=== PATIENT | female | born 1960 | race Caucasian/White ===

== ENCOUNTER 2019-12-16 09:11 | Emergency (ER) | payer MEDICAID ==
[~2019-12-16] VITALS: Ht 157.5 cm; Wt 49.0 kg
[2019-12-16 09:40] VITALS: BP 110/63
[2019-12-16] MEDS ORDERED: ketorolac trometh inj. 60 MG/2 ML VIAL IM ONE (10:45)
[2019-12-16] MEDS ORDERED: HYDROcodone/acetaminophen 10/325mg tab PO ONE (10:45)
[2019-12-16] MEDS ORDERED: HYDR-4353 PO (10:50)
[2019-12-16] MEDS ORDERED: IBUP-1986 PO (10:50)
== END 2019-12-16 11:15 | disposition home or self-care (01) ==
LOC: ER 09:11
DX: M25.461 Effusion, right knee (principal); F17.200 Nicotine dependence, unspecified, uncomplicated; Z79.899 Other long term (current) drug therapy; W01.0XXA Fall on same level from slipping, tripping and stumbling without subsequent striking against object, initial encounter; Y93.89 Activity, other specified; Y92.89 Other specified places as the place of occurrence of the external cause; Y99.8 Other external cause status
CPT/HCPCS: 29505; 73564; 96372; 99283; J1885

== ENCOUNTER 2020-05-17 15:28 | Outpatient (CLI) | payer MEDICAID ==
[~2020-05-17 15:28] MED LIST: IBUP-1986 PO
== END 2020-05-17 23:59 | disposition home or self-care (01) ==
LOC: VAS 15:28
PROVIDERS: ATTEND Physician Assistant
DX: M25.461 Effusion, right knee (principal); Z96.651 Presence of right artificial knee joint; Z72.0 Tobacco use
CPT/HCPCS: 93971

== ENCOUNTER 2022-07-16 11:47 | Emergency (ER) | payer MEDICAID | END 2022-07-16 13:13 | disposition left against medical advice (07) | LOC: ER 11:48 | DX: T14.8XXA Other injury of unspecified body region, initial encounter (principal); Z53.21 Procedure and treatment not carried out due to patient leaving prior to being seen by health care provider; W57.XXXA Bitten or stung by nonvenomous insect and other nonvenomous arthropods, initial encounter; Y93.89 Activity, other specified; Y92.89 Other specified places as the place of occurrence of the external cause; Y99.8 Other external cause status ==